=== PATIENT | male | born 1960 | race Caucasian/White ===

== ENCOUNTER → 2020-08-06 | Outpatient (CLI) | payer MEDICARE | LOC: CT 10:09 | DX: T82.39 Other mechanical complication of other vascular grafts (principal); Z95.828 Presence of other vascular implants and grafts; I71.01 Dissection of thoracic aorta | CPT/HCPCS: 36415; 71275; 82565; Q9967 ==

== ENCOUNTER → 2021-09-07 | Outpatient (CLI) | payer MEDICARE | LOC: CT 08:56 | DX: T82.31 Breakdown (mechanical) of other vascular grafts (principal) | CPT/HCPCS: 36415; 82565; 84520; Q9967 ==

== ENCOUNTER 2021-11-26 18:21 | Emergency (ER) | payer MEDICARE ==
[2021-11-26 19:44] LABS: HEMOGLOBIN 15.6 gm/dl (14.0-17.5); RED BLOOD COUNT 4.44 M/UL (4.20-5.50); WHITE BLOOD COUNT 10.9 K/UL (4.5-11.0)
[2021-11-26 20:42] LABS: BUN/CREATININE RATIO 23 (0-10)
== END 2021-11-26 22:11 | disposition home or self-care (01) ==
LOC: ER1 18:21
PROVIDERS: Physician Assistant Medical
DX: F10.129 Alcohol abuse with intoxication, unspecified (principal); E11.9 Type 2 diabetes mellitus without complications; I10 Essential (primary) hypertension
CPT/HCPCS: 70450; 71045; 80053; 80307; 81001; 82140; 82550; 82553; 82962; 83605; 84484; 85025; 96360; 99285; G0480